=== PATIENT | male | born 1970 | race Caucasian/White ===

== ENCOUNTER 2024-09-04 09:26 | Emergency (ER) | payer MEDICAID ==
[2024-09-04 10:17] LABS: BASOPHILS PERCENT AUTO 0.3 % (0.0-1.0); EOSINOPHILS PERCENT AUTO 2.7 % (1.0-3.0); LYMPHOCYTES PERCENT AUTO 12.8 % (20.5-50.1); MONOCYTES PERCENT AUTO 10.2 % (2-8); NEUTROPHILS PERCENT AUTO 74.0 % (42.2-75.2); PLATELET COUNT,PLT 177 10^3/uL (150-450); RED BLOOD CELL COUNT 5.40 10^6/uL (4.6-6.2); WHITE BLOOD CELL COUNT,WBC 12.7 10^3/uL (5.0-10.0)
[2024-09-04 10:38] LABS: A/G RATIO 1.0; ALANINE AMINOTRANSFERASE,ALT 20.0 U/L (16-63); ASPARTATE AMNIOTRANSFERASE,AST 18.0 U/L (15-37); BILIRUBIN TOTAL 1.7 mg/dL (0.2-1.0); BLOOD UREA NITROGEN,BUN 17.0 mg/dL (7-18); CARBON DIOXIDE,CO2 27.0 mmol/L (21-32); CHLORIDE,CL 100.0 mmol/L (98-107); CREATININE 1.02 mg/dL (0.70-1.30); EST CRCL DRUG DOSING (CG) 83.5 mL/min; ESTIMATED GFR 86.0 mL/min (>=60); GLUCOSE RANDOM 142.0 mg/dL (70-99); POTASSIUM,K 4.0 mmol/L (3.5-5.1); PROTEIN TOTAL,TP 7.1 g/dL (6.4-8.2); SODIUM,NA 135.0 mmol/L (136-145)
[2024-09-04 10:45] LABS: INR 1.2 (0.9-1.2); PTT,PARTIAL THROMBOPLSTIN TIME 25.0 SEC (22.0-34.0)
[2024-09-04 10:46] LABS: APPEARANCE,URINE SLIGHTLY CLOUDY (CLEAR); GLUCOSE,URINE NEGATIVE (NEGATIVE); OCCULT BLOOD,URINE TRACE-INTACT (NEGATIVE)
[2024-09-04 11:02] LABS: EPITHELIAL CELLS,URINE FEW /HPF (NOT SEEN)
== END 2024-09-04 12:15 | disposition home or self-care (01) ==
LOC: DL.ED 09:26
DX: S30.22XA Contusion of scrotum and testes, initial encounter (principal); S39.012A Strain of muscle, fascia and tendon of lower back, initial encounter; N39.0 Urinary tract infection, site not specified; N45.1 Epididymitis; N45.2 Orchitis; I48.91 Unspecified atrial fibrillation; Z79.899 Other long term (current) drug therapy; Z79.01 Long term (current) use of anticoagulants; W18.39XA Other fall on same level, initial encounter; Y93.89 Activity, other specified
CPT/HCPCS: 36415; 72100; 76870; 80053; 81001; 85025; 85610; 85730; 87086; 96372; 99284; J0696; 87088; 87186